=== PATIENT | male | born 1995 | race Caucasian/White ===

== ENCOUNTER 2016-08-25 17:25 | Emergency (ER) | payer SELFPAY ==
--- OUTSIDE RECORDS SUMMARY | 2016-08-25 17:50 | XMS REPORT | Continuity of Care Document ---
:1995 Author Organization [facility] ([facility]) Address [place] [address] Phone [phone] Care Team Providers Name Role Phone Unavailable Primary Care Provider Unavailable Source Comments This disclosure is being made pursuant to the Care Everywhere program, applicable federal and state laws, and may not contain all informaitonavailable regarding this patient.[facility] ([facility]) Active Allergies and Adverse Reactions No Active Allergies Current Medications Not on file Active Problems Not on file Social History Tobacco Use Types Packs/Day Years Used Date Never Assessed Plan of Care Health Maintenance Due Date Last Done Comments Hepatitis B Vaccine (1 of 3 - Primary Series) 1996 HPV Vaccine (1 of 3 - Male 3 Dose Series) 12/30/2007 Tdap Vaccine 12/30/2007 Meningococcal Vaccine (1 of 1) 2012 Lipid Disorder Screening 2014 MMR Vaccine 2014 Td Vaccine 2014 Varicella Vaccine (1 of 2 - Adult - No Evidence of 2014 Immunity) Influenza Vaccine: Seasonal (#1) 01/02/2016 Results from Last 3 Months Not on file
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
[2016-08-25 18:07] LABS: Hemoglobin 14.6 gm/dL (13.5-18.0); Mean Corpuscular Hemoglobin 30.9 pg (27-31); Mean Corpuscular Hgb Conc 34.8 g/dl (32-36); Mean Platelet Volume 9.9 fl (6.0-9.5); Neutrophil # 10.2 K/mm3 (1.3-6.0); Neutrophil % 68.1 % (42-75.0); Platelet Count 333 K/mm3 (150-450); Red Blood Count 4.72 M/mm3 (4.7-6.0); Red Cell Distribution Width 12.4 % (11.5-14.0); White Blood Count 14.9 K/mm3 (4.0-10.5)
[2016-08-25 18:10] LABS: Total Cells Counted 100
[2016-08-25 18:18] LABS: Lymphocyte 15 % (20-51); Monocyte 15 % (0-9); Neutrophil 70 % (42-75); Neutrophil # 10.4 K/mm3 (1.3-6.0); Platelet Estimate Normal (NORMAL); RBC Morphology Normal (NORMAL)
[2016-08-25 18:21] LABS: Anion Gap 12.5 mmol/L (6.8-13.8); Bilirubin, Total 0.6 mg/dL (0.0-1.1); Ca. Corrected For Albumin 8.7 mg/dL (8.4-10.2); Carbon Dioxide 28.4 mmol/L (24-32.6); Potassium 3.9 mmol/L (3.4-4.6); Total Protein 8.1 gm/dL (6.2-8.2)
[2016-08-25] MEDS ORDERED: NAPROXEN SODIUM 550 MG TABLET ONE (19:01)
[2016-08-25] MEDS ORDERED: NAPROXEN SODIUM 550 MG TABLET PO ONE (19:08)
[2016-08-25 19:23] VITALS: BP 134/56
== END 2016-08-25 19:15 | disposition home or self-care (01) ==
LOC: ER 17:25
DX: H92.23 Otorrhagia, bilateral (principal); S09.91XA Unspecified injury of ear, initial encounter; V86.59XA Driver of other special all-terrain or other off-road motor vehicle injured in nontraffic accident, initial encounter; Y93.9 Activity, unspecified; Y92.9 Unspecified place or not applicable; Y99.8 Other external cause status; S09.90XA Unspecified injury of head, initial encounter; S80.01XA Contusion of right knee, initial encounter; Z72.0 Tobacco use
CPT/HCPCS: 36415; 70450; 72125; 73562; 80053; 85025; 85652; 99285; G0481

== ENCOUNTER 2016-08-27 14:52 | Emergency (ER) | payer SELFPAY ==
[2016-08-27 15:10] VITALS: BP 138/60
--- OUTSIDE RECORDS SUMMARY | 2016-08-27 16:28 | XMS REPORT | Continuity of Care Document ---
:1995 Author Organization [facility] ([facility]) [place] [address] Phone [phone] Care Team Providers Name Role Phone Unavailable Primary Care Provider Unavailable Source Comments This disclosure is being made pursuant to the Care Everywhere program, applicable federal and state laws, and may not contain all informaitonavailable regarding this patient.[facility] ([facility]) Active Allergies and Adverse Reactions No Active [...]
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
== END 2016-08-27 16:37 | disposition home or self-care (01) ==
LOC: ER 14:52
DX: S80.01XD Contusion of right knee, subsequent encounter (principal); V86.99XD Unspecified occupant of other special all-terrain or other off-road motor vehicle injured in nontraffic accident, subsequent encounter

== ENCOUNTER 2017-05-03 19:17 | Emergency (ER) | payer SELFPAY ==
[2017-05-03] MEDS ORDERED: HYDROmorphone HCL 1 MG/ML DISP.SYRIN IV ONE (20:00)
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
[2017-05-03 20:18] LABS: Hematocrit 33.5 % (42.0-52.0); Hemoglobin 11.9 gm/dL (13.5-18.0); Mean Cell Volume 90.3 fl (78-100); Mean Corpuscular Hemoglobin 32.1 pg (27-31); Mean Corpuscular Hgb Conc 35.5 g/dl (32-36); Mean Platelet Volume 9.6 fl (6.0-9.5); Neutrophil # 10.7 K/mm3 (1.3-6.0); Neutrophil % 65.3 % (42-75.0); Platelet Count 318 K/mm3 (150-450); Red Blood Count 3.71 M/mm3 (4.7-6.0); Red Cell Distribution Width 13.1 % (11.5-14.0); White Blood Count 16.3 K/mm3 (4.0-10.5)
[2017-05-03 20:22] LABS: Total Cells Counted 100
[2017-05-03 20:33] LABS: Albumin * 3.3 gm/dl (3.4-5.0); Anion Gap 12.5 mmol/L (6.8-13.8); BUN/Creatinine Ratio 20.3 (9.0-21.6); Bilirubin, Total 1.5 mg/dL (0.0-1.1); Ca. Corrected For Albumin 9.2 mg/dL (8.4-10.2); Carbon Dioxide 28.7 mmol/L (24-32.6); Potassium 4.2 mmol/L (3.4-4.6); Total Protein 7.8 gm/dL (6.2-8.2)
[2017-05-03 20:39] LABS: Eosinophil 3 % (0-3); Lymphocyte 11 % (20-51); Monocyte 13 % (0-9); Neutrophil 73 % (42-75); Neutrophil # 11.9 K/mm3 (1.3-6.0); Platelet Estimate Normal (NORMAL); RBC Morphology Normal (NORMAL)
[2017-05-03] MEDS ORDERED: HYDROmorphone HCL 1 MG/ML DISP.SYRIN ONE (20:40)
[2017-05-03 20:51] LABS: Cocaine Ur Negative (NEGATIVE); Urine Barbiturate Negative (NEGATIVE); Urine Benzodiazepines Negative (NEGATIVE); Urine Opiates Negative (NEGATIVE); Urine PCP Negative (NEGATIVE)
[2017-05-03 20:55] LABS: Urine THC Positive (NEGATIVE)
[2017-05-03] MEDS ORDERED: ACETAMINOPHEN 500 MG TABLET PO ONE (21:05)
[2017-05-03 21:12] LABS: Urine Appearance Clear; Urine Bacteria None Seen; Urine Bilirubin Negative (NEGATIVE); Urine Blood Negative /ul (NEGATIVE); Urine Color Amber; Urine Ketone Negative (NEGATIVE); Urine Nitrite Negative (NEGATIVE); Urine Protein 15 mg/dL (NEGATIVE); Urine RBC None Seen /hpf (0-5); Urine Urobilinogen 4 EU/dl (NORMAL); Urine WBC 0-5 /hpf (0-5); Urine pH 6.5 pH (5.0-7.0)
[2017-05-03] MEDS ORDERED: oxyCODONE HCL/ACETAMINOPHEN 1 TAB TABLET PO ONE (22:38)
[2017-05-03] MEDS ORDERED: CEPHALEXIN MONOHYDRATE 250 MG CAPSULE PO ONE (22:38)
[2017-05-03] MEDS ORDERED: oxyCODONE HCL/ACETAMINOPHEN 1 TAB TABLET ONE (22:53)
[2017-05-03] MEDS ORDERED: CEPHALEXIN MONOHYDRATE 250 MG CAPSULE ONE (22:54)
[2017-05-03 23:08] VITALS: BP 117/66
== END 2017-05-03 23:07 | disposition home or self-care (01) ==
LOC: ER 19:17
DX: M96.89 Other intraoperative and postprocedural complications and disorders of the musculoskeletal system (principal); R10.10 Upper abdominal pain, unspecified